=== PATIENT | female | born 1945 | race Hispanic/Latino ===

== ENCOUNTER 2022-01-13 08:17 | Day surgery (SDC) | payer OTHER ==
[2022-01-09 11:56] LABS: Absolute Lymphocytes (CBC) 1.9 K/uL (0.7-4.9); Hematocrit 41.5 % (36.0-45.0); Lymphocytes % 35.5 % (15.3-44.8); MCV 85.6 fL (80-100); MPV 8.6 fL (7.6-11.3); RBC Red Blood Cell Count 4.85 M/uL (3.86-4.86)
[2022-01-09 12:02] LABS: Protime INR 1.05
--- NOTE | 2022-01-09 12:09 | RAD REPORT ---
EXAM DESCRIPTION: RAD - Chest Pa And Lat (2 Views) - 01/09/2022 11:46 am CLINICAL HISTORY: pre op for surgery COMPARISON: Two view chest May 2009 TECHNIQUE: Frontal and lateral views of the chest were obtained. FINDINGS: The lungs are clear. Stranding in each lung base is slightly more prominent than the sidney te exam. This is probably interval development of fibrotic change. Acute infiltrate is unlikely. No a cute symptoms were detailed. Heart size is normal and central vasculature is within normal limits. N o pleural effusion or pneumothorax seen. No acute bony finding noted. No aortic abnormality. IMPRESSION: No acute cardiopulmonary process.
[2022-01-09 12:12] LABS: Potassium 3.8 mmol/L (3.5-5.1)
[2022-01-09 12:20] LABS: SARS-CoV-2 Antigen Rapid Res Negative (Negative)
--- NOTE | 2022-01-09 13:17 | EKG ---
Test Date: 2022-01-09 Test Time: 11:38:49 [place] Operator: GAUDENCIO MEASUREMENT RESULTS: Intervals: Rate: 63 KS: 176 QRSD: 84 QT: 412 QTc: 421 [place]: P: 64 KS: 176 QRS: 40 T: 52 INTERPRETIVE STATEMENTS: Normal sinus rhythm Normal ECG Compared to ECG 06/09/2009 10:52:16 Sinus bradycardia no longer present Electronically Signed On 01-09-22 13:17:19 CDT by Jordon Cruz
[2022-01-13] MEDS ORDERED: Ringers Lactate 1,000 ML IV ONE (08:43)
[2022-01-13] MEDS ORDERED: SCOPOLAMINE HYDROBROMIDE PATCH TD ONE ×2 (08:43→10:32)
[2022-01-13] MEDS ORDERED: ACETAMINOPHEN 500 MG TAB ONE (08:47)
[2022-01-13] MEDS ORDERED: CLINDAMYCIN 600MG/D5W 600 MG/50 ML BAG IV ONE (09:00)
[2022-01-13] MEDS ORDERED: propofoL 200 MG/20 ML VIAL IV ONE ×2 (09:16→10:31)
[2022-01-13] MEDS ORDERED: NS 0.9% VIAL 30 ML ONE (09:18)
[2022-01-13] MEDS ORDERED: BUPIVACAINE 0.25% PF 10 ML VIAL SQ ONE (10:05)
--- NOTE | 2022-01-13 10:14 | P.BOP ---
Preoperative diagnosis: left middle finger trigger digit Postoperative diagnosis: same Primary procedure: left middle finger A1 belinda release Utility Pipe Layer: NONE,NONE Estimated blood loss: 3 cc Specimen: none Findings: see dictation Anesthesia: Brennan block Complications: None Implants: none Fluids & blood products: per anesthesia record; TT: 25 mins @ 300 mmHg Transferred to: Recovery Room Condition: Good
[2022-01-13] MEDS ORDERED: LIDOCAINE 1% MPF 30 ML VIAL ONE (10:16)
[2022-01-13] MEDS ORDERED: FENTANYL CITR 100 MCG/2 ML ONE (10:31)
[2022-01-13] MEDS ORDERED: BUPIVACAINE 0.25% PF 10 ML VIAL ONE (10:32)
[2022-01-13] MEDS ORDERED: ONDANSETRON 4 MG/2 ML VIAL ONE (10:32)
[2022-01-13] MEDS ORDERED: LIDOCAINE 2% MPF 5 ML VIAL ONE (10:32)
[2022-01-13 14:57] VITALS: BP 120/61; TEMP 96.3; O2SAT 93
--- NOTE | 2022-01-13 22:16 | OP ---
Date of Procedure: 01/13/2022 Surgeon: Miguel Esquivel MD Preoperative Diagnosis: Left hand middle finger trigger digit. Postoperative Diagnosis: Left hand middle finger trigger digit. Procedure Performed: Left middle finger A1 belinda release. Anesthesia: [place] block. Fluids: Per Anesthesia record. Ebl: 3 cc. Complications: None. Tourniquet Time: 25 minutes at 300 mmHg. Indications For Procedure: Ms. Feliciano is a 76-year-old female who presented to my clinic with signs and symptoms consistent with left middle finger trigger digit. She failed conservative treatment me asures including corticosteroid injection and had significant pain that interfered with her activitie s of daily living. I discussed with the patient at length risks and benefits associated with operati ve and nonoperative treatment. She expressed understanding and elected to proceed with operative margarita atment. Description Of Procedure: After informed consent was obtained, the patient was identified in the pre operative holding area. The left middle finger was marked. The patient was then brought back to the operative room, transferred to the operative table in supine fashion and placed under Brennan block ane sthesia by Anesthesia. Left upper extremity was then prepped and draped in a sterile fashion. A thomas e-out was initiated. The correct patient and procedure were confirmed and identified the patient did receive her preoperative prophylactic antibiotics. Approximately a 1.5 cm incision was made centere d over the A1 belinda of the middle finger. Dissection was then taken down using [place] to the flexo r tendon sheath. A 15 blade was then used to incise the flexor tendon sheath. There was tenosynovia l fluid that was expressed after opening of the flexor tendon sheath. The flexor tendon sheath was e xcised using tenotomy to minimize recurrence. The flexor tendon was then brought out through the inc ision and full excursion of the flexor tendon was noted without triggering. The wound was then irrig ated thoroughly with normal saline. Skin was approximated using a 5-0 Prolene. Sterile dressing was applied. Tourniquet was let down. The patient was awakened and transferred to PACU in stable condi tion. Postoperative Plan: The patient may begin working on range of motion exercises. She will be nonweig htbearing of her left upper extremity. She will follow up in 1 week for suture removal. KLELEN/JULIOL Voice ID: [id number] Report ID: [id number]
== END 2022-01-13 11:35 | disposition home or self-care (01) ==
LOC: OR 08:17
PROVIDERS: ATTEND Orthopaedic Surgery Sports Medicine
PROC: 0LN80ZZ Release Left Hand Tendon, Open Approach (ICD-10-PCS; principal; 2022-01-13 09:45)
DX: M65.332 Trigger finger, left middle finger (principal); Z20.822 Contact with and (suspected) exposure to COVID-19
CPT/HCPCS: 93005; 85025; 80048; 36415; 85610; 85730; 71046; 87811; 26055; J2704 ×2; J3010; J7120; J2405